=== PATIENT | male | born 1995 | race Caucasian/White ===

== ENCOUNTER 2016-07-07 16:06 | Emergency (ER) | payer BC ==
[~2016-07-07] VITALS: Ht 188 cm; Wt 86.2 kg
[2016-07-07 16:57] LABS: CHLORIDE 110 mEq/L (99-109); POTASSIUM 3.4 mEq/L (3.7-5.4); SODIUM 141 mEq/L (136-147)
[2016-07-07 16:59] LABS: GLUCOSE 87 mg/dL (70-99)
[2016-07-07 17:00] LABS: ANION GAP 11 MEQ/L (2-14)
[2016-07-07 17:02] LABS: SERUM ETHYL ALCOHOL < 10 mg/dL
[2016-07-07 17:03] LABS: GFR ESTIMATE (CALCULATED) > 59 mL/min/
[2016-07-07 17:04] LABS: UREA NITROGEN (BUN) 22 mg/dL (9-23)
[2016-07-07 17:47] LABS: BASOPHIL COUNT 0.1 K/uL (0-0.1); EOSINOPHIL (%) 1.5 % (0-5); EOSINOPHIL COUNT 0.1 K/uL (0-0.3); HEMATOCRIT 42.9 % (38.0-50.0); IMMATURE GRANULOCYTE (%) 0.5 % (0.0-0.7); INSTRUMENT ABS NEUTROPHIL CT 3.6 K/uL; LYMPHOCYTE COUNT 2.9 K/uL (1.0-2.8); MCH 32.4 PG (29.0-34.0); MCHC 38.9 G/DL (30.0-36.0); MCV 83.3 FL (86-99); MEAN PLAT.VOLUME 9.2 uM^3 (9.0-12.4); MONOCYTE (%) 12.2 % (3-12); MONOCYTE COUNT 0.9 K/uL (0-0.8); NEUTROPHIL (%) 46.9 % (45-76); NEUTROPHIL COUNT 3.6 K/uL (1.8-6.4); PLATELET COUNT 271 K/uL (156-360); RBC DIS.WIDTH-CV 11.6 % (11.8-14.6); RBC DIS.WIDTH-SD 35.4 % (39-53); RED BLOOD COUNT 5.15 M/uL (4.00-5.50); WHITE BLOOD COUNT 7.6 K/uL (4.1-10.2)
[2016-07-07] MEDS ORDERED: XANAX0.5 MG PO (18:10)
[2016-07-07 18:29] VITALS: BP 125/83
== END 2016-07-07 18:31 | disposition home or self-care (01) ==
LOC: EME 16:06
PROVIDERS: Emergency Medicine
DX: F41.9 Anxiety disorder, unspecified (principal); F41.0 Panic disorder [episodic paroxysmal anxiety]
CPT/HCPCS: 80048; 81003; 85025; 93005; 99281; 99285; G0480; J7030